=== PATIENT | female | born 1995 | race Caucasian/White ===

== ENCOUNTER 2016-05-09 15:58 | Emergency (ER) | payer BC, OTHER ==
[2016-05-09] MEDS ORDERED: Pantoprazole IV* 40 MG IV ONE (16:38)
[2016-05-09] MEDS ORDERED: Ondansetron INJ* 2 MG/ML VIAL IV ONE (16:38)
[2016-05-09] MEDS ORDERED: NS 0.9% 1000 ML* 2,000 ML IV ONE (16:38)
[2016-05-09 16:57] LABS: Hematocrit 38 % (35-47); Hemoglobin 12.8 g/dl (12.0-16.0); Mean Corpuscular HGB Conc 34 g/dl (31-36); Mean Corpuscular Hemoglobin 32 pg (27-31); Mean Corpuscular Volume 93 fL (80-97); Mean Platelet Volume 9 um3 (7.4-10.4); Red Blood Count 4.03 10^6/ul (4.0-5.4); Red Cell Distribution Width 13 % (10.5-15); White Blood Count 7.8 10^3/ul (3.5-10.8)
[2016-05-09 17:13] LABS: ALT 15 U/L (7-52); AST 25 U/L (13-39); Albumin 4.8 g/dL (3.2-5.2); Alkaline Phosphatase 60 U/L (34-104); Amylase 82 U/L (29-103); Anion Gap 9 mmol/L (2-11); Blood Urea Nitrogen 8 mg/dL (6-24); C Reactive Protein 1.53 mg/L (< 5.00); CO2 Carbon Dioxide 27 mmol/L (22-32); Calcium 10.7 mg/dL (8.6-10.3); Chloride 102 mmol/L (101-111); EGFR African American 105.1 (>60); EGFR Non-African American 81.7 (>60); Glucose 90 mg/dL (70-100); Lipase 19 U/L (11.0-82.0); Potassium 3.7 mmol/L (3.5-5.0); Sodium 138 mmol/L (133-145); Total Protein 7.8 g/dL (6.4-8.9)
--- NOTE | 2016-05-09 17:46 | RAD ---
Indication: Right lower quadrant pain. Real-time sonography of the right upper quadrant and right lower quadrant was performed. Liver is normal in size. No focal lesions or intrahepatic biliary duct dilatation is noted. The gallbladder demonstrates no gallstones, pericholecystic fluid or wall thickening. The common duct measures up to 3.4 mm. Right kidney measures 9.2 x 4.3 x 4.6 cm with no hydronephrosis. Tiny echogenic foci in the lateral aspect of the kidney is noted which may represent nonshadowing calculi. The pancreas is not visualized due to overlying gas. There is a suggestion of a lymph node measuring 27 x 11 x 14 mm. Aorta and inferior vena cava are unremarkable. Interrogation of the right lower quadrant utilizing a high frequency linear transducer demonstrates free fluid in the right lower quadrant with peristalsing bowel. No definite appendix is visualized. IMPRESSION: NO CHOLELITHIASIS OR BILIARY DUCT DILATATION. PROBABLE LYMPH NODE ANTERIOR TO THE PANCREAS MEASURING 27 X 11 X 14 MM. THE APPENDIX IS NOT VISUALIZED.
[2016-05-09 19:01] LABS: Urine Bacteria 1+ (Absent); Urine Bilirubin Negative (Negative); Urine Glucose Negative (Negative); Urine Nitrite Negative (Negative)
[2016-05-09] MEDS ORDERED: Morphine INJ* 4 MG/ML 1 ML CARPUJECT IV ONE (19:05)
[2016-05-09 20:13] VITALS: BP 125/83
--- NOTE | 2016-05-09 20:13 | ED ---
Rory Lewis Anna, scribed for Santos Morales MD on 05/09/16 at 1623 . GI/ HPI - HPI Summary HPI Summary: Patient is a 20 y/o female coming to [facility] presenting with constant abdominal pain that began three days ago. She describes the pain as a burning feeling below her belly button that was worse today. The pain is exacerbated by eating and deep breaths. She has not eaten since this morning. The pain radiates to the middle of her back but does not radiate up her chest. This morning, the pain spiked a few times and was higher. She has some nausea. She feels warm and is slightly diaphoretic. Denies diarrhea, rhinorrhea, emesis, changes in urination, CP, SOB, recent travel, blood in stools, vaginal discharge or bleeding. She took Tums, which did not alleviate the symptoms. She had acid reflux two weeks ago and took Tums for this. She has been taking ibuprofen because of dental pain from her wisdom teeth. She regularly drinks a lot of black coffee. Denies history of ulcers, gall bladder problems. She drinks occasionally but has not had anything to drink recently. - History of Current Complaint Chief Complaint: EDAbdPain Stated Complaint: STOMACH FEELS BURNING Hx Obtained From: Patient Pain Intensity: 2 - Allergy/Home Medications Allergies/Adverse Reactions: Allergies Allergy/AdvReac Type Severity Reaction Status Date / Time No Known Allergies Allergy Verified 05/09/16 16:40 PMH/Surg Hx/FS Hx/Imm Hx Previously Healthy: Yes Cardiovascular History: Denies: Hx Myocardial Infarction GI History: Denies: Hx Gall Bladder Disease, Hx Ulcer Infectious Disease History: No Infectious Disease History: Denies: Traveled Outside the [place] in Last 30 Days - Family History Known Family History: Negative: Cardiac Disease - Social History Occupation: Student Lives: With Family Alcohol Use: Occasionally Hx Substance Use: No Substance Use Type: Reports: None Hx Tobacco Use: No Smoking Status (MU): Never Smoked Tobacco Review of Systems Positive: Skin Diaphoresis Negative: Drainage Positive: Dental Pain Negative: Chest Pain Negative: Shortness Of Breath Positive: Abdominal Pain, Nausea. Negative: Vomiting, Diarrhea Negative: dysuria, discharge All Other Systems Reviewed And Are Negative: Yes Physical Exam - Summary Physical Exam Summary: The patient is well-nourished in no acute distress and in no acute pain. The skin is warm and diaphoretic. Skin color reflects adequate perfusion. HEENT: The head is normocephalic and atraumatic. The pupils are equal and reactive. The conjunctivae are clear and without drainage. Nares are patent and without drainage. Mouth reveals moist mucous membranes and the throat is without erythema and exudate. The external ears are intact. The ear canals are patent and without drainage. The tympanic membranes are intact. Neck is supple with full range of motion and non-tender. There are no carotid bruits. There is no neck vein distension. Respiratory: Chest is non-tender. Lungs are clear to auscultation and breath sounds are symmetrical and equal. Cardiovascular: Heart is regular rate and rhythm. There is no murmur or rub auscultated. There is no peripheral edema and pulses are symmetrical and equal. Abdomen: LLQ abdominal pain and periumbilical pain. No RLQ, epigastric, RUQ, or LUQ pain. The abdomen is soft. There are normal bowel sounds heard in all four quadrants and there is no organomegaly palpated. No CVA tenderness. Musculoskeletal: There is no back pain noted. Extremities are non-tender with full range of motion. There is good capillary refill. There is no peripheral edema or calf tenderness elicited. Neurological: Patient is alert and oriented to person, place and time. The patient has symmetrical motor strength in all four extremities. Psychiatric: The patient has an appropriate affect and does not exhibit any anxiety or depression. Triage Information Reviewed: Yes Vital Signs On Initial Exam: Initial Vitals Temp Pulse Resp BP Pulse Ox 98.1 F 71 16 121/69 98 05/09/16 16:00 05/09/16 16:00 05/09/16 16:00 05/09/16 16:00 05/09/16 16:00 Vital Signs Reviewed: Yes Diagnostics - Vital Signs Vital Signs Temp Pulse Resp BP Pulse Ox 05/09/16 16:00 98.1 F 71 16 121/69 98 - Laboratory Lab Results: Lab Results 05/09/16 05/09/16 05/09/16 Range/Units 16:50 16:50 16:50 WBC 7.8 (3.5-10.8) 10^3/ul RBC 4.03 (4.0-5.4) 10^6/ul Hgb 12.8 (12.0-16.0) g/dl Hct 38 (35-47) % MCV 93 (80-97) fL MCH 32 H (27-31) pg MCHC 34 (31-36) g/dl RDW 13 (10.5-15) % Plt Count 185 (150-450) 10^3/ul MPV 9 (7.4-10.4) um3 Neut % (Auto) 66.2 (38-83) % Lymph % (Auto) 23.8 L (25-47) % [place] % (Auto) 8.5 (1-9) % Eos % (Auto) 1.2 (0-6) % Baso % (Auto) 0.3 (0-2) % Absolute Neuts (auto) 5.2 (1.5-7.7) 10^3/ul Absolute Lymphs (auto) 1.9 (1.0-4.8) 10^3/ul Absolute Monos (auto) 0.7 (0-0.8) 10^3/ul Absolute Eos (auto) 0.1 (0-0.6) 10^3/ul Absolute Basos (auto) 0 (0-0.2) 10^3/ul Absolute Nucleated RBC 0 10^3/ul Nucleated RBC % 0 Sodium 138 (133-145) mmol/L Potassium 3.7 (3.5-5.0) mmol/L Chloride 102 (101-111) mmol/L Carbon Dioxide 27 (22-32) mmol/L Anion Gap 9 (2-11) mmol/L BUN 8 (6-24) mg/dL Creatinine 0.89 (0.51-0.95) mg/dL Est GFR ( Amer) 105.1 (>60) Est GFR (Non-Af Amer) 81.7 (>60) BUN/Creatinine Ratio 9.0 (8-20) Glucose 90 (70-100) mg/dL Lactic Acid 0.8 (0.5-2.0) mmol/L Calcium 10.7 H (8.6-10.3) mg/dL Total Bilirubin 0.70 (0.2-1.0) mg/dL AST 25 (13-39) U/L ALT 15 (7-52) U/L Alkaline Phosphatase 60 (34-104) U/L C-Reactive Protein 1.53 (< 5.00) mg/L Total Protein 7.8 (6.4-8.9) g/dL Albumin 4.8 (3.2-5.2) g/dL Globulin 3.0 (2-4) g/dL Albumin/Globulin Ratio 1.6 (1-3) Amylase 82 (29-103) U/L Lipase 19 (11.0-82.0) U/L Beta HCG, Quant < 0.60 mIU/mL Urine Color Urine Appearance Urine pH (5-9) Ur Specific [place] (1.010-1.030) Urine Protein (Negative) Urine Ketones (Negative) Urine Blood (Negative) Urine Nitrate (Negative) Urine Bilirubin (Negative) Urine Urobilinogen (Negative) Ur Leukocyte Esterase (Negative) Urine WBC (Auto) (Absent) Urine RBC (Auto) (Absent) Ur Squamous Epith Cells (Absent) Urine Bacteria (Absent) Urine Glucose (Negative) 05/09/16 Range/Units 18:45 WBC (3.5-10.8) 10^3/ul RBC (4.0-5.4) 10^6/ul Hgb (12.0-16.0) g/dl Hct (35-47) % MCV (80-97) fL MCH (27-31) pg MCHC (31-36) g/dl RDW (10.5-15) % Plt Count (150-450) 10^3/ul MPV (7.4-10.4) um3 Neut % (Auto) (38-83) % Lymph % (Auto) (25-47) % [place] % (Auto) (1-9) % Eos % (Auto) (0-6) % Baso % (Auto) (0-2) % Absolute Neuts (auto) (1.5-7.7) 10^3/ul Absolute Lymphs (auto) (1.0-4.8) 10^3/ul Absolute Monos (auto) (0-0.8) 10^3/ul Absolute Eos (auto) (0-0.6) 10^3/ul Absolute Basos (auto) (0-0.2) 10^3/ul Absolute Nucleated RBC 10^3/ul Nucleated RBC % Sodium (133-145) mmol/L Potassium (3.5-5.0) mmol/L Chloride (101-111) mmol/L Carbon Dioxide (22-32) mmol/L Anion Gap (2-11) mmol/L BUN (6-24) mg/dL Creatinine (0.51-0.95) mg/dL Est GFR ( Amer) (>60) Est GFR (Non-Af Amer) (>60) BUN/Creatinine Ratio (8-20) Glucose (70-100) mg/dL Lactic Acid (0.5-2.0) mmol/L Calcium (8.6-10.3) mg/dL Total Bilirubin (0.2-1.0) mg/dL AST (13-39) U/L ALT (7-52) U/L Alkaline Phosphatase (34-104) U/L C-Reactive Protein (< 5.00) mg/L Total Protein (6.4-8.9) g/dL Albumin (3.2-5.2) g/dL Globulin (2-4) g/dL Albumin/Globulin Ratio (1-3) Amylase (29-103) U/L Lipase (11.0-82.0) U/L Beta HCG, Quant mIU/mL Urine Color Yellow Urine Appearance Clear Urine pH 7.0 (5-9) Ur Specific [place] 1.006 L (1.010-1.030) Urine Protein Negative (Negative) Urine Ketones Trace H (Negative) Urine Blood Negative (Negative) Urine Nitrate Negative (Negative) Urine Bilirubin Negative (Negative) Urine Urobilinogen Negative (Negative) Ur Leukocyte Esterase 1+ H (Negative) Urine WBC (Auto) Trace(0-5/hpf) (Absent) Urine RBC (Auto) Absent (Absent) Ur Squamous Epith Cells Present H (Absent) Urine Bacteria 1+ H (Absent) Urine Glucose Negative (Negative) Result Diagrams: 05/09/16 16:50 05/09/16 16:50 Lab Statement: Any lab studies that have been ordered have been reviewed, and results considered in the medical decision making process. - Ultrasound No standard instances Ultrasound Interpretation: Positive (See Comments) - ABDOMEN US IMPRESSION: NO CHOLELITHIASIS OR BILIARY DUCT DILATATION. PROBABLE LYMPH NODE ANTERIOR TO THE PANCREAS MEASURING 27 X 11 X 14 MM. THE APPENDIX IS NOT VISUALIZED. Ultrasound Interpretation Completed By: Radiologist Re-Evaluation - Re-Evaluation First Eval Re-Evaluation Time: 18:58 Comment: The patient says the pain comes in waves. She is still nauseated. Second Eval Re-Evaluation Time: 19:50 Change: Improved Comment: pt states pain is better and does not want to wait for CT Abd/Pelvis. she was advised to return if pain localizes in the right lower quadrant, fever, and increased vomiting.she is to stop ibuprofen and take prilosec 20 mg daily. GIGU Course/Dx - Course Assessment/Plan: Comes in with abd pain located periumbilical. Worse with food ingestion. Denies upper abd pain. Denies fever, chills. Initial concern was for gastritis or ulcers as patient had been using an increased amount of ibuprofen. Pain radiated to back, so needed to r/o pancreatitis. US was negative for gallstones, pancreatitis. Re-assessed, and patient is still having periumbilical pain. Will d/c to home with abdominal pain. Patient should take Prilosec once a day and return if anything becomes worse. - Diagnoses Differential Diagnoses - Female: Appendicitis, Cholelithiasis, Gall Bladder Disease, Gastritis, Pancreatitis, Peptic Ulcer Disease, Other - Ulcers Provider Diagnoses: Abdominal pain Discharge - Discharge Plan Condition: Stable Disposition: HOME Patient Education Materials: Abdominal Pain (ED) Referrals: [facility] M[facility] [Primary Care Provider] - Additional Instructions: Take [id number] Prilosec, 25 mg day. Stop ibuprofen use. Follow up with primary care provider within 48 hours. Return to the emergency department for any new or worsening symptoms. The documentation as recorded by the Rory graham Anna accurately reflects the service I personally performed and the decisions made by , Santos Morales MD.
== END 2016-05-09 20:11 | disposition home or self-care (01) ==
LOC: ED 15:58
DX: S22.31XA Fracture of one rib, right side, initial encounter for closed fracture (principal); R07.81 Pleurodynia; R05 Cough; R06.02 Shortness of breath; Z87.891 Personal history of nicotine dependence; W19.XXXA Unspecified fall, initial encounter; Y93.9 Activity, unspecified; Y92.9 Unspecified place or not applicable
CPT/HCPCS: 36415; 76705; 80053; 81003; 81015; 82150; 83605; 83690; 84702; 85025; 86140; 87086; 99282; J2270; J2405